=== PATIENT | female | born 1990 | race Caucasian/White ===

== ENCOUNTER 2023-01-20 16:56 | Emergency (ER) | payer OTHER, SELFPAY ==
--- NOTE | 2023-01-20 17:02 | ED.GENADULT ---
HPI - General Adult General Chief complaint: Urogenital-Female Stated complaint: uti symptoms Time Seen by Provider: 01/20/23 17:02 Source: patient Mode of arrival: ambulatory Limitations: no limitations History of Present Illness HPI narrative: 32-year-old female patient presents to the [facility] with complaints of urinary symptoms for the past 4 days. Patient states she has had low back pain, chills, fatigue, urgency and frequency with urination. Patient has complained of some nausea. Patient states her last UTI was in August and was treated with Macrobid which they had to change because it did not help with her symptoms. Related Data Home Medications Medication Instructions Recorded Confirmed dextroamphetamine-amphetamine ER 50 mg PO DAILY 01/20/23 01/20/23 50 mg capsule,3 bead,ext release 24hr (Mydayis) escitalopram oxalate 20 mg tablet 20 mg PO DAILY 01/20/23 01/20/23 serdexmethylphenidate 52.3 1 tablet PO DAILY 01/20/23 01/20/23 mg-dexmethylphenidate 10.4 mg capsule (Azstarys) Allergies Allergy/AdvReac Type Severity Reaction Status Date / Time No Known Allergies Allergy Verified 01/20/23 17:21 Review of Systems Review of Systems: CONSTITUTIONAL: Denies fever, positive chills, denies sweats. EYES: Denies visual changes, redness, or discharge. ENT: Denies rhinorrhea, congestion, sore throat, or otalgia. CARDIOVASCULAR: Denies chest pain, palpitations, or edema. RESPIRATORY: Denies cough or dyspnea. GASTROINTESTINAL: Denies abdominal pain, positive nausea, denies vomiting, or diarrhea. GENITOURINARY: Positive dysuria denies hematuria. SKIN: Denies rash or itching. MUSCULOSKELETAL: positive low back pain, denies joint pain, or myalgia. NEUROLOGIC: Denies headache, numbness, or weakness. PSYCHIATRIC: Denies anxiety or depression. [facility] Past Medical History Medical History (Updated 01/20/23 @ 17:48 by PURNIMA Talamantes) ADD (attention deficit disorder) Anxiety Depression Migraines Surgical History Surgical History (Updated 01/20/23 @ 17:04 by PURNIMA Talamantes) H/O adenoidectomy Hx of tonsillectomy Family History Family History (Updated 01/20/23 @ 17:04 by PURNIMA Talamantes) Other Hypertension Hypothyroidism Comments At the time of my signature I agree with nursing past medical history, surgical, social, and family history. There is no relevant family history pertinent to the presenting complaint. Exam Narrative: GENERAL: Well-appearing, well-nourished, and in no acute distress. HEAD: Normocephalic, atraumatic. EYES: PERRLA and EOMI. ENT: Nares clear, no rhinorrhea or epistaxis. Mucous membranes moist. NECK: Supple. No lymphadenopathy CHEST: Clear to auscultation. No respiratory distress. HEART: Regular rate and rhythm. No murmur heard. Normal peripheral pulses. ABDOMEN: Soft, flat, nondistended. No guarding, rebound tenderness, or rigid. No pulsatilla masses. Bowel sounds present in all four quadrants. No organomegaly. Negative Henderson?s sign. No periumbicial tenderness. No Supra public tenderness or distension. Good femoral pulses bilaterally. No hernia noted. No scars or surface trauma. positive bilateral CVA tenderness EXTREMITIES: Normal range of motion. No edema. SKIN: Warm, dry, no rash. NEURO: No focal deficits. Alert and oriented x3. Course Course Level of Care: Express Care Visit Vital Signs Vital signs: Vital Signs Temperature 36.4 C L 01/20/23 17:16 Pulse Rate 114 H 01/20/23 17:16 Respiratory Rate 18 01/20/23 17:16 Blood Pressure 155/95 H 01/20/23 17:16 Pulse Oximetry 99 01/20/23 17:16 Oxygen Delivery Room Air 01/20/23 17:16 Temperature 36.4 C L 01/20/23 17:16 Pulse Rate 114 H 01/20/23 17:16 Respiratory Rate 18 01/20/23 17:16 Blood Pressure 155/95 H 01/20/23 17:16 Pulse Oximetry 99 01/20/23 17:16 Oxygen Delivery Room Air 01/20/23 17:16 vital signs reviewed The patient has be
[2023-01-20 17:16] VITALS: BP 155/95; PULSE 114; RESP 18; TEMP 36.4; O2SAT 99
== END 2023-01-20 17:51 | disposition home or self-care (01) ==
PROVIDERS: Emergency Provider Nurse Practitioner Family; PCP Physician Assistant
DX: N30.90 Cystitis, unspecified without hematuria (principal); F98.8 Other specified behavioral and emotional disorders with onset usually occurring in childhood and adolescence; F41.9 Anxiety disorder, unspecified; F32.A Depression, unspecified
CPT/HCPCS: 81003; 81025; 87086; 99213; G0463

== ENCOUNTER 2023-05-05 09:06 | Emergency (ER) | payer OTHER, SELFPAY ==
[2023-05-05 09:15] VITALS: BP 123/78; PULSE 93; RESP 18; TEMP 36.4; O2SAT 100
--- NOTE | 2023-05-05 09:27 | ED.URI ---
HPI - URI/Sore Throat General Chief Complaint: Upper Respiratory Infection Stated Complaint: Sore Throat,Body Aches,Congestion Time Seen by Provider: 05/05/23 09:17 Source: patient and RN notes reviewed Mode of arrival: ambulatory Limitations: no limitations History of Present Illness HPI Narrative: 33-year-old female presented for complaint of sore throat, headache, body aches, sinus pressure/congestion, cough, fever/chills. Onset yesterday. denies sob, wheezing, n/v/d. Patient takes Zyrtec daily. Also taking sign acts and Tylenol ibuprofen for symptoms. She denies sick contacts. Patient was recently treated with antibiotics for an ear infection last week, and UTI which she completed 2 days ago. MD elicited complaint: cough Related Data Home Medications Medication Instructions Recorded Confirmed dextroamphetamine-amphetamine ER 50 mg PO DAILY 01/20/23 05/05/23 50 mg capsule,3 bead,ext release 24hr (Mydayis) escitalopram oxalate 20 mg tablet 20 mg PO DAILY 01/20/23 05/05/23 serdexmethylphenidate 52.3 1 tablet PO DAILY 01/20/23 05/05/23 mg-dexmethylphenidate 10.4 mg capsule (Azstarys) Allergies Allergy/AdvReac Type Severity Reaction Status Date / Time No Known Allergies Allergy Verified 05/05/23 09:14 Review of Systems Review of Systems: CONSTITUTIONAL: Endorses malaise, chills, sweats, fever EYES: Denies visual changes, redness, or discharge ENT: Reports rhinorrhea, congestion, sinus pain, sore throat CARDIOVASCULAR: Denies chest pain, palpitations, edema RESPIRATORY: Reports cough, post nasal drainage. Denies dyspnea GASTROINTESTINAL: Denies abdominal pain, nausea, vomiting, diarrhea SKIN: Denies rash or itching MUSCULOSKELETAL: Endorses myalgia PMFSH Past Medical History Medical History ADD (attention deficit disorder) Anxiety Depression Migraines Surgical History Surgical History H/O adenoidectomy Hx of tonsillectomy Family History Family History Other Hypertension Hypothyroidism Exam Narrative: GENERAL: Ill-appearing, nontoxic no acute distress. HEAD: Normocephalic EYES: PERRLA, conjunctivae clear ENT: Mucous membranes moist. Nasal congestion. TM pearly bey with dull light reflex bilaterally; no tragal tenderness. Oropharynx erythematous without lesions or exudate, tonsils absent no drooling, no hoarseness, no trismus, uvula midline. No tripod positioning, muffled voice, soft palate or pharyngeal wall bulging NECK: Supple. No lymphadenopathy CHEST: Clear to auscultation, breath sounds equal. No wheezing, rhonchi, rales, or stridor. No respiratory distress, speaks in full sentences. HEART: Regular rate and rhythm. No murmur heard. SKIN: Warm, dry, no rash. NEURO: Alert and oriented x3. PSYCH: Normal mood and affect Course Course Emergency Course: Patient is aware of diagnosis, understands and agrees to treatment plan. Anticipatory guidance given. Patient agrees to follow-up as directed and is aware of reasons to seek care at the emergency department. Portions of this record may have been created with voice recognition software Level of Care: Express Care Visit Vital Signs Vital signs: Vital Signs Temperature 97.6 F 05/05/23 09:15 Pulse Rate 93 05/05/23 09:15 Respiratory Rate 18 05/05/23 09:15 Blood Pressure 123/78 05/05/23 09:15 Pulse Oximetry 100 05/05/23 09:15 Oxygen Delivery Room Air 05/05/23 09:15 Temperature 97.6 F 05/05/23 09:15 Pulse Rate 93 05/05/23 09:15 Respiratory Rate 18 05/05/23 09:15 Blood Pressure 123/78 05/05/23 09:15 Pulse Oximetry 100 05/05/23 09:15 Oxygen Delivery Room Air 05/05/23 09:15 reviewed MDM - URI/Sore Throat MDM Narrative Medical decision making narrative: POS influenza. Neg strep and covid Discussed
== END 2023-05-05 09:51 | disposition home or self-care (01) ==
PROVIDERS: Emergency Provider Nurse Practitioner Family; PCP Physician Assistant
DX: J10.1 Influenza due to other identified influenza virus with other respiratory manifestations (principal); Z20.822 Contact with and (suspected) exposure to COVID-19; F98.8 Other specified behavioral and emotional disorders with onset usually occurring in childhood and adolescence; F41.9 Anxiety disorder, unspecified; F32.A Depression, unspecified
CPT/HCPCS: 87081; 87426; 87804; 87880; 99213; C9803; G0463